=== PATIENT | female | born 2000 | race Caucasian/White ===

== ENCOUNTER 2023-07-25 16:26 | Emergency (ER) | payer OTHER, SELFPAY ==
[2023-07-25 16:29] VITALS: BP 107/67; PULSE 97; RESP 18; TEMP 36.2; O2SAT 99
[2023-07-25 16:49] LABS: Basophils Percent Auto 0.3 % (0.2-1.2); Eosinophils Percent Auto 0.4 % (0-4.4); Hematocrit 43.9 % (37.0-47.0); Hemoglobin 14.9 g/dL (12.0-15.0); Immature Granulocyte Absolute 0.03 K/mm3 (0.00-0.031); Immature Granulocyte Percent A 0.3 % (0-0.5); Lymphocytes Absolute Auto 1.88 K/mm3 (0.9-3.2); Lymphocytes Percent Auto 20.7 % (18.3-44.2); Mean Corpuscular HGB Conc 33.9 g/dl (32-36); Mean Corpuscular Hemoglobin 32.1 pg (26-34); Mean Corpuscular Volume 94.6 fl (80-100); Mean Platelet Volume 10.1 fl (7.4-10.4); Monocytes Absolute Auto 0.5 K/mm3 (0.1-0.6); Monocytes Percent Auto 5.5 % (2.6-8.5); Neutrophils Absolute Auto 6.6 K/mm3 (1.3-6.7); Neutrophils Percent Auto 72.8 % (45.5-73.1); Platelet Count Result 210 k/mm3 (150-375); Red Blood Count 4.64 M/mm3 (4.2-5.4); Red Cell Distribution Width 11.9 % (11.5-14.5); White Blood Count 9.1 K/mm3 (4.5-10.0)
--- NOTE | 2023-07-25 16:55 | ED.GENADULT ---
HPI - General Adult General Chief complaint: Nausea/Vomiting/Diarrhea Stated complaint: n/v, spotting History of Present Illness HPI narrative: Eri Jolley is a 23 y/o female approx 8-9 weeks , she states she had an ultrasound completed Yesterday to confirm IUP, she comes in today with concern for continued nausea/vomiting/ unable to keep anything down / and she started to have spotting with wiping today. Denies abdominal pain/ cramping Related Data Allergies Allergy/AdvReac Type Severity Reaction Status Date / Time No Known Allergies Allergy Verified 07/25/23 18:24 Course Vital Signs Vital signs: Vital Signs Temperature 36.2 C L 07/25/23 16:29 Pulse Rate 97 07/25/23 16:29 Respiratory Rate 18 07/25/23 16:29 Blood Pressure 107/67 07/25/23 16:29 Pulse Oximetry 99 07/25/23 16:29 Oxygen Delivery Room Air 07/25/23 16:29 Temperature 36.2 C L 07/25/23 16:29 Pulse Rate 91 07/25/23 18:27 Respiratory Rate 18 07/25/23 18:27 Blood Pressure 90/58 L 07/25/23 18:27 Pulse Oximetry 100 07/25/23 18:27 Oxygen Delivery Room Air 07/25/23 16:29 Medical Decision Making Vital Signs Vital Signs: Vital Signs Temperature 36.2 C L 07/25/23 16:29 Pulse Rate 97 07/25/23 16:29 Respiratory Rate 18 07/25/23 16:29 Blood Pressure 107/67 07/25/23 16:29 Pulse Oximetry 99 07/25/23 16:29 Oxygen Delivery Room Air 07/25/23 16:29 Temperature 36.2 C L 07/25/23 16:29 Pulse Rate 91 07/25/23 18:27 Respiratory Rate 18 07/25/23 18:27 Blood Pressure 90/58 L 07/25/23 18:27 Pulse Oximetry 100 07/25/23 18:27 Oxygen Delivery Room Air 07/25/23 16:29 Lab Data 07/25/23 16:39 07/25/23 16:39 Labs: Lab Results 07/25/23 07/25/23 Range/Units 16:39 17:16 WBC 9.1 (4.5-10.0) K/mm3 RBC 4.64 (4.2-5.4) M/mm3 Hgb 14.9 (12.0-15.0) g/dL Hct 43.9 (37.0-47.0) % MCV 94.6 (80-100) fl MCH 32.1 (26-34) pg MCHC 33.9 (32-36) g/dl RDW 11.9 (11.5-14.5) % Plt Count 210 (150-375) k/mm3 MPV 10.1 (7.4-10.4) fl Immature Gran % (Auto) 0.3 (0-0.5) % Neut % (Auto) 72.8 (45.5-73.1) % Lymph % (Auto) 20.7 (18.3-44.2) % [place] % (Auto) 5.5 (2.6-8.5) % Eos % (Auto) 0.4 (0-4.4) % Baso % (Auto) 0.3 (0.2-1.2) % Lymph # (Auto) 1.88 (0.9-3.2) K/mm3 [place] # (Auto) 0.5 (0.1-0.6) K/mm3 Eos # (Auto) 0.0 (0-0.3) K/mm3 Baso # (Auto) 0.0 (0.0-0.1) K/mm3 Abs Immat Gran (auto) 0.03 (0.00-0.031) K/mm3 Absolute Neuts (auto) 6.6 (1.3-6.7) K/mm3 Absolute Nucleated RBC 0.0 (0.0-0.012) K/mm3 Nucleated RBC % 0.0 (0.0-0.2) % Sodium 138 (137-145) mmol/L Potassium 3.9 (3.4-5.0) mmol/L Chloride 104 (98-107) mmol/L Carbon Dioxide 22 (22-30) mmol/L Anion Gap 12 (8-16) mmol/L BUN 11 (7-17) mg/dL Creatinine 0.50 L (0.7-1.0) mg/dL Estim Creat Clear Calc 115 ml/min Estimated GFR > 60 (59 - ) Glucose 81 (65-110) mg/dL Calcium 9.9 (8.4-10.2) mg/dL Total Bilirubin 1.2 (0.2-1.3) mg/dL AST 24 (14-36) U/L ALT 15 (6-35) U/L Alkaline Phosphatase 48 (38-126) U/L Total Protein 9.0 H (6.3-8.2) g/dL Albumin 5.0 (3.5-5.1) g/dL Lipase 108 (23-300) U/L Beta HCG, Quant 752905.00 mIU/ML Urine Color Dark yellow (Yellow) Urine Appearance Turbid H (Clear) Urine pH 5.5 (5.0-9.0) Ur Specific [place] 1.026 (1.001-1.035) Urine Protein Trace (Negative) mg/dL Urine Glucose (UA) Negative (Negative) mg/dL Urine Ketones 1+ H (Negative) mg/dL Ur Blood (Man) Negative (Negative) Urine Nitrate Negative (Negative) Urine Bilirubin Negative (Negative) Urine Urobilinogen 1.0 (<2.0) mg/dL Add Ur Microanalysis Reviewed Leukocyte Esterase Rfl 2+ H (Negative) SARA/UL Urine RBC 11-20 H (0-2) /hpf Urine WBC 11-20 H /hpf Ur Squamous Epith Cells Many H (Few) /hpf Urine Bacteria 4+ H /hpf
[2023-07-25 16:57] LABS: Alanine Aminotransferase 15 U/L (6-35); Alkaline Phosphatase 48 U/L (38-126); Anion Gap 12 mmol/L (8-16); Aspartate Amino Transferase 24 U/L (14-36); Bilirubin,Total 1.2 mg/dL (0.2-1.3); Blood Urea Nitrogen 11 mg/dL (7-17); Calcium 9.9 mg/dL (8.4-10.2); Carbon Dioxide 22 mmol/L (22-30); Chloride 104 mmol/L (98-107); Estimated CRCL calculation 115 ml/min; Estimated Glomerular Filt Rate > 60; Glucose 81 mg/dL (65-110); Lipase 108 U/L (23-300); Potassium 3.9 mmol/L (3.4-5.0); Sodium 138 mmol/L (137-145)
[2023-07-25 17:36] LABS: Appearance Urine Turbid (Clear); Bacteria Urine 4+ /hpf; Bilirubin Urine Negative (Negative); Blood Urine Negative (Negative); Color Urine Dark Yellow (Yellow); Glucose Urine UA Negative (Negative); Ketones Urine 1+ mg/dL (Negative); Leukocyte Esterase Ur 2+ LEU/UL (Negative); Mucus Urine Present /lpf; Need Manual Microscopic Reviewed; Nitrate Urine Negative (Negative); Protein Urine Trace mg/dL (Negative); Specific Grav Ur 1.026 (1.001-1.035); Squamous Epithelial Cell Urine Many /hpf (Few); pH Urine 5.5 (5.0-9.0)
[2023-07-25 17:37] LABS: Add Urine Microscopic? YES
[2023-07-25] MEDS: METOCLOPRAMIDE HCL INJ 10 MG/2 ML VIAL IV PUSH (18:25)
[2023-07-25 18:27] VITALS: BP 90/58; PULSE 91; RESP 18; O2SAT 100
== END 2023-07-25 21:53 | disposition left against medical advice (07) ==
PROVIDERS: Emergency Provider Nurse Practitioner Family; PCP Nurse Practitioner
DX: O26.891 Other specified pregnancy related conditions, first trimester (principal); R11.2 Nausea with vomiting, unspecified; Z3A.08 8 weeks gestation of pregnancy
CPT/HCPCS: 36415; 80053; 81001; 83690; 84702; 85025; 87086; 87088; 96374; 99284; J2765

== ENCOUNTER 2023-11-23 03:50 | Inpatient (IN) | payer OTHER, SELFPAY ==
[2023-11-23] VITALS (12 sets, daily range): BP systolic 63–110; BP diastolic 22–73; PULSE 70–86; RESP 18; TEMP 36.4–37; BMI 22.9
[2023-11-23 04:21] LABS: Appearance Urine Cloudy (Clear); Bacteria Urine 4+ /hpf; Bilirubin Urine Negative (Negative); Blood Urine 3+ (Negative); Color Urine Yellow (Yellow); Glucose Urine UA Negative (Negative); Ketones Urine Negative (Negative); Leukocyte Esterase Ur 2+ LEU/UL (Negative); Nitrate Urine Negative (Negative); Non Pathogenic Casts 0-2; Protein Urine Negative (Negative); RBC Urine 51-100 /hpf (0-2); Specific Grav Ur 1.014 (1.001-1.035); Squamous Epithelial Cell Urine Few /hpf (Few); Urobilinogen Urine 0.2 mg/dL (<2.0)
[2023-11-23 04:26] LABS: WBC Urine 51-75 /hpf (0-3)
[2023-11-23 04:30] LABS: Add Urine Microscopic? YES
--- NOTE | 2023-11-23 04:46 | OBADM ---
This patient, Eri Jolley, admitted to the OB room OB Post 116 for observation. Patient/family oriented to hospital policies and general routines including ID bracelet, bed and alarms, visiting hours, pain management, procedures, bathroom and other care routines, personal items, smoking policy, room service/diet, and visiting hours. Patient/Family are encouraged to report perceived risks to care and to ask questions if they do not understand what they are told or what they should do.
[2023-11-23] MEDS: ACETAMINOPHEN 500 MG TABLET 1000 MG PO ×3 (04:57→19:17)
[2023-11-23] MEDS: LACTATED RINGERS 1,000 ML 125 ML IV CONT ×3 (05:20→20:58)
[2023-11-23 05:21] LABS: Basophils Percent Auto 0.2 % (0.2-1.2); Eosinophils Absolute Auto 0.2 K/mm3 (0-0.3); Hematocrit 38.8 % (37.0-47.0); Hemoglobin 13.2 g/dL (12.0-15.0); Immature Granulocyte Absolute 0.12 K/mm3 (0.00-0.031); Immature Granulocyte Percent A 0.7 % (0-0.5); Lymphocytes Absolute Auto 1.33 K/mm3 (0.9-3.2); Lymphocytes Percent Auto 7.5 % (18.3-44.2); Mean Corpuscular Hemoglobin 32.9 pg (26-34); Mean Corpuscular Volume 96.8 fl (80-100); Mean Platelet Volume 10.7 fl (7.4-10.4); Monocytes Absolute Auto 1.3 K/mm3 (0.1-0.6); Monocytes Percent Auto 7.3 % (2.6-8.5); Neutrophils Absolute Auto 14.8 K/mm3 (1.3-6.7); Neutrophils Percent Auto 83.3 % (45.5-73.1); Platelet Count Result 192 k/mm3 (150-375); Red Blood Count 4.01 M/mm3 (4.2-5.4); Red Cell Distribution Width 12.6 % (11.5-14.5); White Blood Count 17.7 K/mm3 (4.5-10.0)
[2023-11-23] MEDS: cefTRIAXone 2 GM/NS 100 ML 2 GM/100 ML BAG IVPB (05:33)
--- NOTE | 2023-11-23 08:06 | PM.IMHP ---
H&P: HPI History of Present Illness Date/Time: 11/23/23 08:06 Chief Complaint: flank pain Narrative: 23-year-old who presents at 25 weeks with complaint of abdominal pain, cramping, left-sided flank pain. Patient had called the on-call line complaining of the symptoms. Patient also reports dysuria and UTI symptoms. She denies any fevers, chills, nausea, vomiting. Patient noted to have CVA tenderness on her left side. Review of Systems Cardiovascular: Cardiovascular: Denies chest pain, Denies leg edema, Denies palpitations, Denies dyspnea and Denies dyspnea on exertion Respiratory: Respiratory: Denies cough, Denies dyspnea and Denies dyspnea on exertion Gastrointestinal: Gastrointestinal: Denies abdominal pain, Denies constipation, Denies diarrhea, Denies nausea and Denies vomiting Genitourinary: Genitourinary: Denies hematuria, Denies dysuria, Denies pelvic pain, Reports flank pain, Denies urinary incontinence and Denies vaginal discharge Neurologic: Reports system reviewed and no additional complaints, except as documented Psychiatric: Psychiatric: Reports no additional psychiatric complaints Endocrine: Endocrine: Denies palpitations [facility] Past Medical History Medical History (Updated 11/23/23 @ 09:24 by Emile Patricia MD) Amenorrhea delivery delivered Family History Family History (Updated 11/14/23 @ 08:28 by Nora Vieira MA) Other Breast cancer Lung cancer Skin cancer Social History Social History (Updated 11/14/23 @ 08:28 by Nora Vieira MA) Smoking status: Never smoker Alcohol intake: former Substance use: never Substance use type: does not use Do You Feel Safe in your Home?: Yes Lack of Transportation: No Lack of Food: Never True Current Housing: I Have Housing Concerned About Future Housing: No Difficulty Paying Gas/Electric Bills: No Difficulty Paying for Meds: No Currently Unemployed: No Education: High School Diploma/GED Difficulty w/ Childcare or Family Care: No Living arrangements: with family Occupation/Education: occupation 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[employer] Gender identity (if verbalized by the patient): Female Sexual Orientation (if Verbalized by the Patient): Straight or Heterosexual Meds Home Medications and Allergies Home Medications Medication Instructions Recorded Confirmed Type docosahexaenoic acid 200 mg mg PO 11/14/23 11/14/23 History capsule ( DHA) Allergies Allergy/AdvReac Type Severity Reaction Status Date / Time No Known Allergies Allergy Verified 11/14/23 08:26 Vital Signs Vital Signs - 24 hr 11/23/23 04:07 11/23/23 04:16 11/23/23 04:31 Temperature 97.7 F Pulse Rate 82 84 83 Respiratory Rate 18 Blood Pressure 110/73 106/71 101/56 L Oxygen Delivery 11/23/23 05:31 11/23/23 06:01 11/23/23 06:12 Temperature 98.6 F Pulse Rate 74 86 Respiratory Rate Blood Pressure 101/60 102/60 Oxygen Delivery 11/23/23 06:31 11/23/23 07:01 11/23/23 07:12 Temperature Pulse Rate 74 75 76 Respiratory Rate Blood Pressure 94/57 L 63/41 L 72/22 L Oxygen Delivery 11/23/23 07:12 11/23/23 07:12 11/23/23 04:45 Temperature Pulse Rate 70 Respiratory Rate Blood Pressure 97/57 L Oxygen Delivery Room Air Exam Const: General: no acute distress Eyes: EOM: EOMs intact bilaterally Neck: Neck: supple Thyroid: thyroid normal Chest: Breast/axilla inspection: normal inspection of the breasts Breast/axilla palpation: normal palpation of the breasts, normal palpation of the axillae and no axillary lymphadenopathy Resp: Effort & Inspection: normal respiratory effort Auscultation: clear to auscultation bilaterally Cardio: Rate: regular rate Rhythm: regular rhythm GI: Inspection: non-distended and other (Gravid) GI Palp: Yes Soft to palpation, No Tenderness to palpation present (GI) and No
[2023-11-24] MEDS: LACTATED RINGERS 1,000 ML 125 ML IV CONT (05:09)
[2023-11-24] MEDS: cefTRIAXone 2 GM/NS 100 ML 2 GM/100 ML BAG IVPB (05:09)
[2023-11-24] MEDS: ACETAMINOPHEN 500 MG TABLET 1000 MG PO (05:46)
--- NOTE | 2023-11-24 07:40 | PC.NURSE ---
Dr. Patricia in to see and assess pt. CBC was ordered for this am. MD plans to discharge pt to home if WBC count has come down.
[2023-11-24 07:55] VITALS: BP 96/51; RESP 16; TEMP 36.3
[2023-11-24 07:57] VITALS: BP 96/51; PULSE 74
--- NOTE | 2023-11-24 07:59 | PM.DS ---
DS: Admitting Diagnosis Discharge Date 11/24/23 Admitting Diagnosis intrauterine at 25 weeks Acute pyelonephritis DS: Discharge Diagnosis Discharge Diagnosis (1) Pyelonephritis affecting in second trimester: Code(s): O23.02 - Infections of kidney in , second trimester Status: Acute DS: Summary Hospital Course Hospital Course: 23-year-old at 25 weeks who presents with left-sided flank plain found to have acute pyelonephritis. Patient received 2 doses of IV Rocephin. Patient's CVA tenderness has improved greatly. Plan for discharge home on p.o. antibiotics. Status at Discharge Functional status at discharge: independent ambulation Overall status at discharge: patient is progressing back to baseline Time Spent with Patient Time attestation: Total time spent providing and/or coordinating discharge services: Time spent: Less than 30 minutes Exam Const: General: cooperative, comfortable and no acute distress Resp: Effort & Inspection: normal respiratory effort and able to speak in complete sentences Cardio: Rate: regular rate GI: GI Palp: Yes Soft to palpation and No Tenderness to palpation present (GI) : General: Yes no CVA tenderness Discharge Plan Discharge Discharging Clinician: Emile Patricia Patient Disposition: Home, Self-Care Activity: as tolerated Diet: regular Patient Instructions: Antibiotic Form, Urinary Tract Infection in (DC) Stand Alone Forms: General Discharge Information Follow-up/Referrals: Emile Patricia MD [Physician] - Discharge Medications: New cephalexin 500 mg capsule 500 mg PO Q12H 14 Days Qty: 28 0RF Continued DHA 200 mg capsule PO Date of admission: 11/23/23 11:33 Primary Care Provider: UNKNOWN,DOCTOR Admitting Provider: Kim Zayas Attending physician on admission: Kim Zayas Condition: Stable
[2023-11-24 08:03] LABS: Basophils Percent Auto 0.3 % (0.2-1.2); Eosinophils Absolute Auto 0.2 K/mm3 (0-0.3); Eosinophils Percent Auto 2.2 % (0-4.4); Hematocrit 35.3 % (37.0-47.0); Hemoglobin 11.8 g/dL (12.0-15.0); Lymphocytes Absolute Auto 1.97 K/mm3 (0.9-3.2); Lymphocytes Percent Auto 19.6 % (18.3-44.2); Mean Corpuscular HGB Conc 33.4 g/dl (32-36); Mean Corpuscular Hemoglobin 33.2 pg (26-34); Mean Corpuscular Volume 99.4 fl (80-100); Mean Platelet Volume 10.2 fl (7.4-10.4); Monocytes Absolute Auto 0.6 K/mm3 (0.1-0.6); Monocytes Percent Auto 6.2 % (2.6-8.5); Neutrophils Absolute Auto 7.1 K/mm3 (1.3-6.7); Neutrophils Percent Auto 70.7 % (45.5-73.1); Platelet Count Result 175 k/mm3 (150-375); Red Blood Count 3.55 M/mm3 (4.2-5.4); Red Cell Distribution Width 12.7 % (11.5-14.5)
[2023-11-24 08:59] VITALS: BP 96/51; PULSE 71
== END 2023-11-24 11:39 | disposition home or self-care (01) | DRG 832 ==
PROVIDERS: Admitting Provider Student in an Organized Health Care Education/Training Program; Visit Provider Student in an Organized Health Care Education/Training Program
DX: O23.02 Infections of kidney in pregnancy, second trimester (principal); N10 Acute pyelonephritis; Z3A.25 25 weeks gestation of pregnancy
CPT/HCPCS: 36415; 59025; 85025; 87086; 96361; 96374; A9270; G0378; G0379; J0696; J7120

== ENCOUNTER 2023-11-24 15:15 | Outpatient (CLI) | payer OTHER, SELFPAY ==
--- NOTE | ~2023-11-24 | US_ITS ---
EXAMINATION: US OB /maternal detail DATE: 11/24/2023 15:55 INDICATION: survey TECHNIQUE: Multiple obstetric sonographic images performed. FINDINGS: No prior studies for comparison. There is a single living fetus in breech presentation. The placenta is anterior without placenta pre via. Cervical length is 3.1 cm. Amniotic fluid volume is subjectively normal. cardiac activity and movement is noted with a heart rate of 156 beats per minute. The following anatomy was identified as normal: 4 chamber heart 3 vessel cord cord insertion kidneys urinary bladder stomach spine diaphragm ventricles cisterna magna cerebellum The following biometric data were obtained: BPD: 62mm corresponds to gestational age 25 weeks 0 days. Head circumference: 240 mm corresponds to gestational age 26 weeks 1 days. Abdominal circumference: 223 mm corresponds to gestational age 26 weeks 5 days. Femur length: 46 mm corresponds to gestational age 25 weeks 2 days. Head circumference to abdominal circumference ratio: 1.08 (normal range for expected gestational age is 1.04-1.22). Estimated weight: 886 grams +/- 132 grams using Hadlock method, 67%. IMPRESSION: 1: Single living intrauterine with an estimated gestational age of 25weeks 6days by current ultrasound measurements, with an EDC of 03/02/2024 in breech presentation. 2. Normal survey. Reviewed, dictated and finalized at location A. IMPRESSION: 1: Single living intrauterine with an estimated gestational age of 25 weeks 6days by current ultrasound measurements, with an EDC of 03/02/2024 in chayo ech presentation. 2. Normal survey.
== END 2023-11-24 15:16 ==
LOC: MICIMG 15:16
PROVIDERS: PCP Student in an Organized Health Care Education/Training Program; Visit Provider Student in an Organized Health Care Education/Training Program
DX: Z34.90 Encounter for supervision of normal pregnancy, unspecified, unspecified trimester (principal); Z3A.25 25 weeks gestation of pregnancy
CPT/HCPCS: 76805

== ENCOUNTER 2023-12-22 09:48 | Outpatient (CLI) | payer OTHER, SELFPAY ==
[2023-12-22 11:16] LABS: Basophils Percent Auto 0.4 % (0.2-1.2); Eosinophils Absolute Auto 0.1 K/mm3 (0-0.3); Eosinophils Percent Auto 1.2 % (0-4.4); Hematocrit 37.7 % (37.0-47.0); Hemoglobin 12.5 g/dL (12.0-15.0); Immature Granulocyte Absolute 0.14 K/mm3 (0.00-0.031); Immature Granulocyte Percent A 1.4 % (0-0.5); Lymphocytes Percent Auto 16.1 % (18.3-44.2); Mean Corpuscular HGB Conc 33.2 g/dl (32-36); Mean Corpuscular Hemoglobin 32.9 pg (26-34); Mean Corpuscular Volume 99.2 fl (80-100); Mean Platelet Volume 9.9 fl (7.4-10.4); Monocytes Absolute Auto 0.6 K/mm3 (0.1-0.6); Monocytes Percent Auto 6.1 % (2.6-8.5); Neutrophils Absolute Auto 7.5 K/mm3 (1.3-6.7); Neutrophils Percent Auto 74.8 % (45.5-73.1); Platelet Count Result 189 k/mm3 (150-375); Red Cell Distribution Width 12.6 % (11.5-14.5)
[2023-12-22 11:26] LABS: Glucose 1 Hour PP 50gm Dose 69 mg/dL
[2023-12-22 12:06] LABS: HIV 1/2 Ab P24 Ag Result Negative (Negative)
[2023-12-22 12:27] LABS: Hepatitis B Surface Antigen Negative (Negative); Rubella IgG Antibody 32.1 IU/ML
[2023-12-25 09:43] LABS: Varicella IgG Antibody <135.00 index
[2023-12-26 12:36] LABS: Rapid Plasma Reagin Non-Reactive (NonReactive)
== END 2023-12-22 09:49 | disposition home or self-care (01) ==
LOC: ANHLAB 09:49
PROVIDERS: Obstetrics & Gynecology; PCP Student in an Organized Health Care Education/Training Program; Visit Provider Student in an Organized Health Care Education/Training Program
DX: Z34.90 Encounter for supervision of normal pregnancy, unspecified, unspecified trimester (principal); N91.2 Amenorrhea, unspecified
CPT/HCPCS: 36415; 82947; 84702; 85025; 86592; 86644; 86703; 86747; 86762; 86787; 86850; 86900; 86901; 87086; 87340; G0432

== ENCOUNTER 2023-12-22 14:02 | Outpatient (CLI) | payer OTHER, SELFPAY ==
--- NOTE | ~2023-12-22 | US_ITS ---
US OB follow up DATE: 12/22/2023 14:39 INDICATION: Size greater than dates TECHNIQUE: Real-time imaging and Doppler analysis COMPARISON: 11/24/2023 obstetrical ultrasound examination FINDINGS: Live vilchis intrauterine gestation, fetus in vertex presentation, heart rate of 16 3 bpm. movement is visualized. The placenta is anterior. The lower placental margin is well above the internal os. Amniotic fluid index measures 12.2 cm, within lower normal range. (5th percentile LEAH: 9.2 cm; 95th p ercentile LEAH: 23.1 cm) Biparietal diameter 7.89 cm; 31 weeks 5 days Head circumference 28.61 cm; 31 weeks 3 days Abdominal circumference 25.56 cm; 29 weeks 5 days Femur length 5.49 cm; 29 weeks 0 days Composite age by Hadlock formula based upon the current measurements would be 30 weeks 3 days +/- 2 w eeks 1 day with LUPE of 02/27/2024, compared to 03/05/2024 by LMP and 03/02/2024 estimate on the obstetrical ultrasound examination. Estimated weight is 1455 +/- 218 g. Head circumference/abdominal audiovisual production specialist was 1.12, within normal range of 0.97-1.18 Femur length/abdominal circumference 21.48, within normal range of 20.00-24.00 Femur length/BPD 69.60, below normal range of 71.0-87.0 Femur length/head circumference 19.18, slightly below normal range of 19.24-21.36. IMPRESSION: Fetus is now in vertex presentation as opposed to breech presentation on 11/24/2023. Amniotic fluid index measures 12.2 cm, within lower normal limits Composite age by Hadlock formula based upon the current measurements would be 30 weeks 3 days +/- 2 w eeks 1 day with LUPE of 02/27/2024, compared to 03/05/2024 by LMP and 03/02/2024 estimate on the obstetrical ultrasound examination. Estimated weight is 1455 +/- 218 g. Reviewed, dictated and finalized at Location [facility]. Reviewed, dictated and finalized at location A. IMPRESSION: Fetus is now in vertex presentation as opposed to breech presentati on on 11/24/2023. Amniotic fluid index measures 12.2 cm, within lower normal limits Composite age by Hadlock formula based upon the current measurements would be 3 0 weeks 3 days +/- 2 weeks 1 day with LUPE of 02/27/2024, compared to 03/05/2024 b y LMP and 03/02/2024 estimate on the 11/24/2023 obstetrical ultrasound examinatio n. Estimated weight is 1455 +/- 218 g.
== END 2023-12-22 14:03 ==
LOC: MICIMG 14:03
PROVIDERS: PCP Obstetrics & Gynecology; Visit Provider Obstetrics & Gynecology
DX: Z34.90 Encounter for supervision of normal pregnancy, unspecified, unspecified trimester (principal)
CPT/HCPCS: 76816

== ENCOUNTER 2024-01-08 21:10 | Observation (INO) | payer OTHER, SELFPAY ==
[2024-01-08 21:30] VITALS: BP 99/63; PULSE 86
[2024-01-08 21:45] VITALS: BP 99/83; PULSE 82
[2024-01-08 22:00] VITALS: BP 99/60; PULSE 79
--- NOTE | 2024-01-10 08:06 | PM.OBTRLD ---
OB - Triage/Final Diagnosis Visit Information Comments/Additional reasons for admission: I have assessed the risk for this patient, Eri Jolley, and determined that she would benefit from observation care. Final Diagnosis (1) Fall: Code(s): W19.XXXA - Unspecified fall, initial encounter Status: Acute
== END 2024-01-09 01:43 | disposition home or self-care (01) ==
PROVIDERS: Admitting Provider Obstetrics & Gynecology; PCP Obstetrics & Gynecology; Visit Provider Obstetrics & Gynecology
DX: Z04.3 Encounter for examination and observation following other accident (principal); W10.9XXA Fall (on) (from) unspecified stairs and steps, initial encounter; Z3A.32 32 weeks gestation of pregnancy
CPT/HCPCS: G0378; G0379

== ENCOUNTER 2024-01-26 14:44 | Outpatient (CLI) | payer OTHER, SELFPAY ==
--- NOTE | ~2024-01-26 | US_ITS ---
EXAMINATION: US OB follow up DATE: 01/26/2024 15:09 INDICATION: History of labor. Third trimester. TECHNIQUE: Real-time ultrasound of the pelvis was performed. COMPARISON: Ultrasound 12/22/2023 FINDINGS: There is a single living fetus in vertex presentation. The placenta is anterior. heart rate is 162 beats per minute (bpm). The amniotic fluid index is 13.7 cm, which is normal. The following biometric data were obtained: Biparietal diameter (BPD): 8.5 cm; head circumference (HC): 30.6 cm; abdominal circumference (AC): 30 .2 cm; femur length (FL): 6.5 cm. These measurements are concordant. Estimated weight is 2330 g +/- 350 g, which correlates with the 33rd percentile when 03/05/24 is used as estimated date of delivery. As single measurements, these parameters are each equal to the following estimated gestational ages: BPD: 34 weeks 3 days. HC: 34 weeks 0 days. AC: 34 weeks 1 days. FL: 33 weeks 4 days. estimated gestational age based solely on measurements from this exam is 34 weeks 0 days +/- 2 weeks 3 days. IMPRESSION: 1. Single living fetus in vertex presentation. 2. Estimated weight is 2330 g +/- 350 g, which correlates with the 33rd percentile when 4 is used as estimated date of delivery. Reviewed, dictated and finalized at location E. IMPRESSION: 1. Single living fetus in vertex presentation. 2. Estimated weight is 2330 g +/- 350 g, which correlates with the 33rd percentile when 03/05/24 is used as estimated date of delivery.
== END 2024-01-26 14:45 ==
PROVIDERS: PCP Obstetrics & Gynecology; Visit Provider Obstetrics & Gynecology
DX: Z34.90 Encounter for supervision of normal pregnancy, unspecified, unspecified trimester (principal); Z87.51 Personal history of pre-term labor
CPT/HCPCS: 76816

== ENCOUNTER 2024-01-31 15:13 | Outpatient (CLI) | payer OTHER, SELFPAY ==
--- NOTE | ~2024-01-31 | US_ITS ---
EXAMINATION: US OB limited DATE: 01/31/2024 15:37 INDICATION: Weekly amniotic fluid index check during third trimester TECHNIQUE: Real-time ultrasound of the pelvis was performed. The interpreting radiologist was not pre sent for the study. COMPARISON: None. FINDINGS: There is a single living fetus. The placenta is anterior. heart rate is 154 beats per minute ( bpm). The amniotic fluid index is 9.6 cm cm, which is normal (5th%-95%: 7.9-3 4.9 cm at 35 weeks taylor mated gestational age). IMPRESSION: 1. Single living fetus with heart rate of 154 bpm. 2. Normal amniotic fluid index of 9.6 cm. Reviewed, dictated and finalized at location A.
== END 2024-01-31 15:14 ==
LOC: GOSHIMG 15:13
PROVIDERS: PCP Obstetrics & Gynecology; Visit Provider Obstetrics & Gynecology
DX: Z36.89 Encounter for other specified antenatal screening (principal)
CPT/HCPCS: 76815

== ENCOUNTER 2024-02-07 13:47 | Outpatient (CLI) | payer OTHER, SELFPAY ==
--- NOTE | ~2024-02-07 | US_ITS ---
US OB limited 02/07/2024 14:01 Indication: Personal history of labor. History of low amniotic fluid index. Procedure: High-resolution Limited obstetrical ultrasound Comparison: Ultrasound dated 01/31/2024 Findings: There is a single living intrauterine in vertex presentation. heart rate is 157 BPM. Placenta is anterior.. Amniotic fluid index is below normal limits measuring 4.37 cm (sabino l range for gestational age is 7.7-24.9 cm). Impression: 1: Oligohydramnios. LEAH measures 4.37 cm. Reviewed, dictated and finalized at location B. Impression: 1: Oligohydramnios. LEAH measures 4.37 cm.
== END 2024-02-07 13:48 ==
PROVIDERS: PCP Obstetrics & Gynecology; Visit Provider Obstetrics & Gynecology
DX: O41.00X0 Oligohydramnios, unspecified trimester, not applicable or unspecified (principal); Z87.51 Personal history of pre-term labor; Z3A.00 Weeks of gestation of pregnancy not specified
CPT/HCPCS: 76815

== ENCOUNTER 2024-02-11 07:06 | Outpatient (RCR) | payer OTHER, SELFPAY ==
[2024-02-08 12:02] VITALS: BP 109/68; PULSE 82
--- NOTE | ~2024-02-11 | US_ITS ---
EXAMINATION: US OB limited w BPP DATE: 02/08/2024 10:34 INDICATION: Oligohydramnios. TECHNIQUE: Real-time pelvic ultrasound was performed. COMPARISON: Ultrasound 02/07/2024 FINDINGS: There is a single living fetus in vertex presentation. The placenta is anterior. heart rate is 162 beats per minute (bpm). The amniotic fluid index is 7.2 cm which is low (5th percentile is 7.7 c m). Biophysical profile performed by the technologist: breathing (30 sec sustained breathing in 30 minutes): 2 out of 2 movement (3 gross body movements in 30 minutes): 2 out of 2 tone (one episode of [id number]-[id number] limb movement): 2 out of 2 Amniotic fluid pocket (2 cm): 2 out of 2 Total score: 8 out of 8 IMPRESSION: 1. Single living fetus in vertex presentation. 2. Biophysical profile 8 out of 8. 3. Oligohydramnios. Reviewed, dictated and finalized at location A.
[2024-02-11 07:52] LABS: Basophils Percent Auto 0.3 % (0.2-1.2); Eosinophils Absolute Auto 0.2 K/mm3 (0-0.3); Eosinophils Percent Auto 1.7 % (0-4.4); Hematocrit 35.4 % (37.0-47.0); Hemoglobin 11.6 g/dL (12.0-15.0); Immature Granulocyte Absolute 0.14 K/mm3 (0.00-0.031); Immature Granulocyte Percent A 1.4 % (0-0.5); Lymphocytes Absolute Auto 1.62 K/mm3 (0.9-3.2); Lymphocytes Percent Auto 16.4 % (18.3-44.2); Mean Corpuscular HGB Conc 32.8 g/dl (32-36); Mean Corpuscular Hemoglobin 31.8 pg (26-34); Mean Platelet Volume 10.1 fl (7.4-10.4); Monocytes Absolute Auto 0.6 K/mm3 (0.1-0.6); Monocytes Percent Auto 5.6 % (2.6-8.5); Neutrophils Absolute Auto 7.4 K/mm3 (1.3-6.7); Neutrophils Percent Auto 74.6 % (45.5-73.1); Platelet Count Result 178 k/mm3 (150-375); Red Blood Count 3.65 M/mm3 (4.2-5.4); Red Cell Distribution Width 12.6 % (11.5-14.5); White Blood Count 9.9 K/mm3 (4.5-10.0)
[2024-02-11 07:58] VITALS: BP 98/61; PULSE 80
[2024-02-11 08:42] LABS: HIV 1/2 Ab P24 Ag Result Negative (Negative)
[2024-02-12 11:51] LABS: Rapid Plasma Reagin Non-Reactive (NonReactive)
== END 2024-05-08 23:59 | disposition home or self-care (01) ==
LOC: ANHOBOP 07:06
PROVIDERS: PCP Nurse Practitioner; Visit Provider Obstetrics & Gynecology
DX: O41.03X0 Oligohydramnios, third trimester, not applicable or unspecified (principal); Z11.4 Encounter for screening for human immunodeficiency virus [HIV]; Z11.3 Encounter for screening for infections with a predominantly sexual mode of transmission; Z3A.36 36 weeks gestation of pregnancy
CPT/HCPCS: 36415; 59025; 76815; 76819; 85025; 86592; 86703; 86850; 86900; 86901; G0432; J2274

== ENCOUNTER 2024-02-12 09:39 | Inpatient (IN) | payer OTHER, SELFPAY ==
[2024-02-12] VITALS (56 sets, daily range): BP systolic 90–122; BP diastolic 46–75; PULSE 54–164; RESP 13–18; TEMP 36.2–36.9; O2SAT 97–100; BMI 27.0
--- NOTE | 2024-02-12 08:59 | PM.IMHP ---
H&P: HPI History of Present Illness Date/Time: 02/12/24 08:59 24-year-old female presents for repeat delivery. She is 37 weeks gestation with oligohydramnios. Her prior section she did deliver due to oligohydramnios and distress. records are on the chart. Chief Complaint: Review of Systems Review of Systems: All systems reviewed & are unremarkable except as noted in HPI and below PMFSH Past Medical History Medical History (Updated 02/12/24 @ 09:03 by James Bolanos MD) Amenorrhea delivery delivered Surgical History Surgical History (Updated 02/12/24 @ 09:03 by James Bolanos MD) History of section complicating Family History Family History Other Breast cancer Lung cancer Skin cancer Social History Social History Smoking status: Never smoker Alcohol intake: former Substance use: never Substance use type: does not use Do You Feel Safe in your Home?: Yes Lack of Transportation: No Lack of Food: Never True Current Housing: I Have Housing Concerned About Future Housing: No Difficulty Paying Gas/Electric Bills: No Difficulty Paying for Meds: No Currently Unemployed: No Education: High School Diploma/GED Difficulty w/ Childcare or Family Care: No Living arrangements: with family 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/Education: occupation 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[employer] Gender identity (if verbalized by the patient): Female Sexual Orientation (if Verbalized by the Patient): Straight or Heterosexual Meds Home Medications and Allergies Home Medications Medication Instructions Recorded Confirmed Type docosahexaenoic acid 200 mg 200 mg PO DAILY 11/14/23 02/06/24 History capsule ( DHA) Allergies Allergy/AdvReac Type Severity Reaction Status Date / Time No Known Allergies Allergy Verified 02/06/24 17:35 Exam Const: General: cooperative and healthy appearing Resp: Effort & Inspection: normal respiratory effort Auscultation: clear to auscultation bilaterally Cardio: Rate: regular rate Rhythm: regular rhythm GI: Inspection: normal to inspection and incision Auscultation: normal bowel sounds : Bimanual exam- vagina & uterus: enlarged ( fundal height 36cm, heart tone 140) Assessment and Plan Assessment and plan (1) 37 weeks gestation of : Code(s): Z3A.37 - 37 weeks gestation of Status: Acute (2) Oligohydramnios: Code(s): O41.00X0 - Oligohydramnios, unspecified trimester, not applicable or unspecified Status: Acute (3) History of section complicating : Code(s): O34.219 - Maternal care for unspecified type scar from previous delivery Status: Acute Plan proceed with repeat low-transverse delivery
--- NOTE | 2024-02-12 09:03 | WPDHPUPDATE1 ---
History and Physical Update Update Date/Time: 02/12/24 09:03 History and Physical has been reviewed, including an updated exam of the patient. There are NO changes in the patient's condition. Risks, benefits, and alternatives have been discussed and questions answered. Patient agrees to proceed with procedure.
[2024-02-12] MEDS: ACETAMINOPHEN 500 MG TABLET 1000 MG PO (10:07)
[2024-02-12] MEDS: LACTATED RINGERS 1,000 ML 125 ML IV CONT ×2 (10:10→11:22)
--- NOTE | 2024-02-12 10:26 | LDADM ---
This patient, Eri Jolley, was admitted to Labor/Delivery/Recovery 120 on 02/12/24 at 09:39. Plans for section, pain management and were discussed with patient. Patient/family oriented to hospital policies and general routines including ID bracelet, bed and alarms, visiting hours, pain management, procedures, bathroom and other care routines, personal items, smoking policy, room service/diet and guest tray routines, security routines, and visiting hours. Patient/Family are encouraged to report perceived risks to care and to ask questions if they do not understand what they are told or what they should do. See OBIX for further documentation.
--- NOTE | 2024-02-12 11:55 | WPDANESEPPF ---
Anes - Initial Pre Proc Eval Procedure: Operation Date: 02/12/24 12:00 Proposed Procedures p Repeat Section - James Bolanos MD Date/Time: 02/12/24 11:55 Surgeon: James Bolanos MD Pre Op Diagnosis: Repeat Section Patient Data Age: 24 Gender: F Height: 1.57 m Weight: 67 kg Last Vital Signs Temp 36.6 C 02/12/24 11:05 Pulse 78 02/12/24 10:39 BP 109/65 02/12/24 10:39 O2 Del Method Room Air 02/12/24 10:18 Allergies Allergy/AdvReac Type Severity Reaction Status Date / Time No Known Allergies Allergy Verified 02/06/24 17:35 Home Medications Medication Instructions Recorded Confirmed Type docosahexaenoic acid 200 mg 200 mg PO DAILY 11/14/23 02/12/24 History capsule ( DHA) Patient hx anesthesia problems: none Family hx anesthesia problems: none Results Review: All pre-operative results and documents have been reviewed as part of the pre-operative evaluation. [facility] Past Medical History Medical History Amenorrhea delivery delivered Surgical History Surgical History History of section complicating Family History Family History Other Breast cancer Lung cancer Skin cancer Social History Social History Smoking status: Never smoker Alcohol intake: former Substance use: never Substance use type: does not use Do You Feel Safe in your Home?: Yes Lack of Transportation: No Lack of Food: Never True Current Housing: I Have Housing Concerned About Future Housing: No Difficulty Paying Gas/Electric Bills: No Difficulty Paying for Meds: No Currently Unemployed: No Education: Trade/Vocational Certificate Difficulty w/ Childcare or Family Care: No Living arrangements: with family Occupation/Education: occupation 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[employer] Gender identity (if verbalized by the patient): Female Sexual Orientation (if Verbalized by the Patient): Straight or Heterosexual Spiritual care concerns: No Anes - Eval Final PreProcedure Day of Procedure 02/12/24 11:55 Patient weight: overweight Heart: regular rate and rhythm Lungs: clear to auscultation Airway: Mallampati scale class II Neurological: alert and oriented Last oral intake: >/= 8 hours ASA classification: II Emergent: no Anesthetic plan: proceed Anesthesia type and monitoring: regional spinal and standard monitoring Results Review: All pre-operative results and documents have been reviewed as part of the pre-operative evaluation. Informed Consent: The patient's anesthetic plan and its attendant risks and benefits were discussed with the patient/family/POA. Questions were solicited and answers provided to the satisfaction of the patient/family/POA.
[2024-02-12] MEDS: FAMOTIDINE 20 MG/2 ML VIAL IV PUSH (11:56)
[2024-02-12] MEDS: ONDANSETRON INJ 4 MG/2 ML VIAL IV PUSH (11:56)
[2024-02-12] MEDS: ceFAZolin 2 GM/D5W 50 ML 2 GM/50 ML BAG IVPB (12:02)
[2024-02-12] MEDS: SIMETHICONE 80 MG TAB.CHEW PO ×2 (13:10→18:57)
[2024-02-12] MEDS: OXYTOCIN 30 UNITS/NS 500 ML 30 UNITS/500 ML BAG 125 UNITS IV CONT (14:01)
--- NOTE | 2024-02-12 15:23 | PC.NURSE ---
This patient, Eri Jolley, was received from labor and delivery per stretcher to room 290. Patient/family oriented to unit policies and routines
--- NOTE | 2024-02-12 15:47 | P.PCNOB_ITS ---
OB - Delivery Note Procedure Delivery date: 02/12/24 Pre-op diagnosis: Oligohydramnios and Previous Delivery Post-op Diagnosis: Same Procedure Performed: Repeat Secondary branch: low cervical, transverse Surgeon: James Bolanos MD Anesthesia type: Spinal Description of Procedure/Findings: Patient prepped and draped usual manner for this procedure. Pfannenstiel incision was made through prior Pfannenstiel incision. This was carried down to the fascia which was extended bilaterally the length of the skin incision. Superiorly and inferiorly dissected away from the rectus muscles. Rectus muscles were readily and peritoneum was entered. Bladder flap was developed without difficulty. Uterus scored in lower segment and extended bilaterally length of the lower segment with clear fluid noted. Vertex was delivered without difficulty, suctioned nasopharynx, the rest baby was delive red. Cord clamped cut passed off the operative field. Placenta was then removed manually and uterus was exteriorized. Membranes and clots removed from the uterus which was then closed using 0 Monocryl in a running interlocking manner with good approximation hemostasis noted. Uterus was turned the abdomen again inspected with hemostasis noted. All subfascial tissue was noted hemostatic and the fascia was approximated using 0 Vicryl from the left angle to midline in a running manner and then from the right angle to the midline in the same manner. Subcutaneous tissue was approximated using 0 plain suture and brittany were used to approximate the skin edges. Patient was sent to recovery room in stable condition. Specimen: Yes Estimated Blood Loss: 205 Drains: Yes Packing: No Pathology: Yes Complications: No immediate complications Condition: Stable Disposition: PACU [place] Baby Weeks of gestation at delivery: 37 gender: Male Weight (pounds): 6 Weight (ounces): 11 presentation: vertex Placenta delivery description: Manual Removal Cord Vessel Description: 3 Vessels score one minute: 8 score five minutes: 9
[2024-02-12] MEDS: HYDROcodone/acetaminophen (*CRX) 5-325 MG TABLET 1 TAB PO ×2 (16:06→22:33)
[2024-02-12] MEDS: ACETAMINOPHEN 325 MG TABLET 650 MG PO (18:56)
[2024-02-12] MEDS: KETOROLAC 15 MG/ML VIAL (*BKC) IV PUSH (18:56)
[2024-02-12] MEDS: DOCUSATE SODIUM 100 MG CAPSULE PO (18:57)
[2024-02-12] MEDS: DEXTROSE 5%/0.45% SOD CHL 1,000 ML 125 ML IV CONT (18:57)
[2024-02-12] MEDS: LIDOCAINE 5% PATCH 1 PATCH TRANSDERM (22:36)
[2024-02-13 00:06] VITALS: BP 95/50; PULSE 61; RESP 18; TEMP 37.5; O2SAT 98
[2024-02-13] MEDS: ACETAMINOPHEN 325 MG TABLET 650 MG PO ×4 (02:34→23:27)
[2024-02-13] MEDS: KETOROLAC 15 MG/ML VIAL (*BKC) IV PUSH ×3 (02:35→14:14)
[2024-02-13 03:30] VITALS: BP 90/47; PULSE 67; RESP 16; TEMP 36.9; O2SAT 97
[2024-02-13 05:53] LABS: Basophils Percent Auto 0.3 % (0.2-1.2); Eosinophils Absolute Auto 0.1 K/mm3 (0-0.3); Hematocrit 32.5 % (37.0-47.0); Hemoglobin 10.5 g/dL (12.0-15.0); Immature Granulocyte Percent A 0.8 % (0-0.5); Lymphocytes Absolute Auto 1.85 K/mm3 (0.9-3.2); Lymphocytes Percent Auto 14.9 % (18.3-44.2); Mean Corpuscular HGB Conc 32.3 g/dl (32-36); Mean Corpuscular Hemoglobin 31.5 pg (26-34); Mean Corpuscular Volume 97.6 fl (80-100); Mean Platelet Volume 11.1 fl (7.4-10.4); Monocytes Absolute Auto 0.8 K/mm3 (0.1-0.6); Monocytes Percent Auto 6.4 % (2.6-8.5); Neutrophils Absolute Auto 9.5 K/mm3 (1.3-6.7); Neutrophils Percent Auto 76.6 % (45.5-73.1); Platelet Count Result 184 k/mm3 (150-375); Red Blood Count 3.33 M/mm3 (4.2-5.4); Red Cell Distribution Width 12.5 % (11.5-14.5); White Blood Count 12.4 K/mm3 (4.5-10.0)
[2024-02-13] MEDS: DOCUSATE SODIUM 100 MG CAPSULE PO ×2 (08:01→14:15)
[2024-02-13] MEDS: MULTIVIT/MIN/PREN/FOL AC/IRON TABLET 1 TAB PO (08:01)
[2024-02-13] MEDS: SIMETHICONE 80 MG TAB.CHEW PO ×3 (08:01→19:01)
[2024-02-13 08:15] VITALS: BP 98/65; PULSE 73; RESP 18; TEMP 36.8; O2SAT 100
--- NOTE | 2024-02-13 08:34 | WPDANLDNPN2 ---
Anes-Prog Note L&D-Neuraxial Date/Time: 02/13/24 08:34 Patient feedback: Patient satisfied with post-operative pain management.
--- NOTE | 2024-02-13 08:35 | WPDANLDPN2 ---
Anes-Prog Note L&D Date/Time: 02/13/24 08:35 Neuro status: Neuro function grossly intact. Cardiovascular status: normal Respiratory status: normal Airway patency: baseline Mental status: baseline Post-Op hydration status: normal Vital Signs: Last Vital Signs Temp 36.9 C 02/13/24 03:30 Pulse 67 02/13/24 03:30 Resp 16 02/13/24 03:30 BP 90/47 L 02/13/24 03:30 Pulse Ox 97 02/13/24 03:30 O2 Del Method Room Air 02/12/24 13:00 Pain score (VAS): 0 I/O: Intake & Output 02/12/24 02/13/24 02/13/24 23:59 07:59 15:59 Intake Total 500 0 Output Total 1800 1000 Balance -1300 -1000 Post-procedural complaints: none Patient feedback: Patient satisfied with anesthetic care.
--- NOTE | 2024-02-13 10:10 | P.PNOB_ITS ---
OB - PN: Subj Subjective Date/time seen: 02/13/24 10:10 Diet/ambulation tolerated. Pain well controlled. VSS afebrile abd soft fundus taty tender inc covered labs noted routine /postop care OB - PN: Obj Data Labs 02/13/24 03:47 Labs: Laboratory Results - last 24 hr 02/13/24 03:47 WBC 12.4 H RBC 3.33 L Hgb 10.5 L Hct 32.5 L MCV 97.6 MCH 31.5 MCHC 32.3 RDW 12.5 Plt Count 184 MPV 11.1 H Immature Gran % (Auto) 0.8 H Neut % (Auto) 76.6 H Lymph % (Auto) 14.9 L Henderson % (Auto) 6.4 Eos % (Auto) 1.0 Baso % (Auto) 0.3 Lymph # (Auto) 1.85 Henderson # (Auto) 0.8 H Eos # (Auto) 0.1 Baso # (Auto) 0.0 Abs Immat Gran (auto) 0.10 H Absolute Neuts (auto) 9.5 H Absolute Nucleated RBC 0.000 Nucleated RBC % 0.0 OB - PN A/P Time Spent With Patient Time: Total time spent is greater than 50% in coordination of care (as documented) at patient's floor/unit and/or counseling patient:
--- NOTE | 2024-02-13 11:16 | PC.NURSE ---
[id number] Introductions were made, then consulted with patient to assess needs related to . Discussed with mother her?plans to feed?her infant, the?experience so far latching independently with no pain with exception to some tenderness after feeding. has an extraordinary output. Educated mother on visualizing her nipples after a breastfeed with signs of a good latch vs a poor latch along with how to watch for swallowing looking for a deeper longer suck demonstrated by the lower jaw dropping. Encouraged [id number], responding to early feeding cues, demonstrated stimulating for wakefulness and placed upright cnhb-rm-hqim on parents chest/breast with a blanket covering using the visual Hunger cues for feeding handout. Resources provided for inpatient services with name written on the communication board along with instructions to use the call light. Mother voiced understanding of information and will call if there is a request for assistance.
[2024-02-13 12:05] VITALS: BP 104/66; PULSE 57; RESP 16; TEMP 36.6; O2SAT 100
[2024-02-13] MEDS: HYDROcodone/acetaminophen (*CRX) 5-325 MG TABLET 1 TAB PO (19:01)
[2024-02-13 20:20] VITALS: BP 106/67; PULSE 62; RESP 18; TEMP 36.9; O2SAT 100
[2024-02-13] MEDS: IBUPROFEN 600 MG TABLET PO (20:30)
[2024-02-14] MEDS: IBUPROFEN 600 MG TABLET PO ×4 (02:42→23:47)
[2024-02-14] MEDS: ACETAMINOPHEN 325 MG TABLET 650 MG PO ×3 (05:33→19:40)
--- NOTE | 2024-02-14 07:42 | PC.NURSE ---
Mother requests to take Motrin and Tylenol separate as she wishes to have pain coverage Q3H. RN educated mother on the benefits of taking the two meds together but patient stated she still wishes to take alone; RN spoke to mother about the benefit of the Lidocaine patch and mother is aggreeable to this; pt verbalized understanding.
[2024-02-14] MEDS: DOCUSATE SODIUM 100 MG CAPSULE PO ×2 (07:49→17:18)
[2024-02-14] MEDS: SIMETHICONE 80 MG TAB.CHEW PO ×3 (07:49→17:18)
[2024-02-14] MEDS: MULTIVIT/MIN/PREN/FOL AC/IRON TABLET 1 TAB PO (07:49)
[2024-02-14] MEDS: LIDOCAINE 5% PATCH 1 PATCH TRANSDERM (07:49)
[2024-02-14 08:25] VITALS: BP 96/65; PULSE 68; RESP 16; TEMP 36.7; O2SAT 100
--- NOTE | 2024-02-14 12:58 | PC.NURSE ---
0905- Primary RN is present. Father of baby shared that infant recently received a bottle. Instructed parents to call with the next feeding and they voiced understanding. [id number] RN DANIELLA was requested to the room. Upon entering the room, infant is jgba-io-[id number] demonstrating feeding cues. Mother works well with her with encouragement and education. Reviewed positioning and ear, shoulder, hip alignment, supporting the breast to facilitate a deep latch, asymmetrical latch (off-center), leading with the chin with a big, open, wide gape and body close to mother. latched optimally to the left breast in cross cradle position. Education given to the mother of how to visualize the suckling (with good rocking jaw motion), swallows (dropping of the lower jaw) and how to listen for drinking at the breast (the ka sound) which infant demonstrates. was able to maintain latch without pain to mother protecting the nipple with optimal positioning and latching. Reviewed comfort measures of healing with a warm, wet washcloth to rinse breast, then leave open to air-dry, good handwashing when or touching the breast/nipples to prevent infection. Mother voiced understanding of skin to skin, stimulating with massage touch, responsive feedings, hand expressed colostrum, talking to to encourage if it has been 2 -2.5 hours since the start of the last , to call if does not latch, or if there is discomfort with . Resources used for education were facilitated with the visual educational handouts/ tool/mom and baby guide. Inpatient/outpatient resources provided with feeding sheet, name written on the communication board, and the mom/baby guide. Mother voiced understanding of information, demonstrated learning and will call if there is a request for assistance. Reported to the Primary RN. [id number] RN DANIELLA was called to the room for a consult. Reviewed the above information after snsi-ya-yret and massage touch, talking to stimulate for wakefulness, burps to offer the other breast. Infant optimally latched to the right breast using the football positioning. demonstrated 1:1 suck:swallow many times. Encouraged mother to feeding about every 2-2.5 hours during the day while practicing uzix-nt-byqw as well with light and gentle touch with compressions when is to increase swallowing. Mother voiced understanding of the information. Reported to the Primary RN.
--- NOTE | 2024-02-14 13:46 | PC.NURSE ---
1240 - Mother verbalizes she is able to independently latch with appropriate positioning and alignment. She denies any nipple discomfort and is responsively . is currently meeting outcomes for weight, output, jaundice, blood sugar and feeding frequencies of 8-12 times in 24 hours. Mother declines any additional assistance or education at this time. Mother is encouraged to call for assistance if her infant doesn?t latch, pain with latching, questions or concerns. Mother voiced understanding of information shared along with the mom/baby guide for an additional resource. Reported to the Primary RN.
--- NOTE | 2024-02-14 15:52 | PM.OBPNVD ---
OB - PN: Subj Subjective Date/time seen: 02/14/24 15:52 no significant change since yesterday though she is feeling better and has ambulated more. Incision is less uncomfortable than yesterday. Incision clean dry and intact with brittany in place Assessment doing well Plan discharge home tomorrow to follow up early next week for staple removal OB - PN: Obj Data Labs 02/13/24 03:47 OB - PN A/P Time Spent With Patient Time: Total time spent is greater than 50% in coordination of care (as documented) at patient's floor/unit and/or counseling patient:
--- NOTE | 2024-02-14 15:53 | PM.OBDSVD ---
DS: Admitting Diagnosis Discharge Date 02/15/2024 Admitting Diagnosis DS: Discharge Diagnosis Discharge Diagnosis (1) , delivered: Code(s): O80 - Encounter for full-term uncomplicated delivery Status: Acute OB - DS: Summary OB Procedures : None OB Procedures Intrapartum: OB Procedures: : None Peripartum Data Procedures: Procedures Operation Date: 02/12/24 12:00 Actual Procedure Side Surgeon p Repeat Section Not Applicable James Bolanos MD Time Spent with Patient Time attestation: Total time spent providing and/or coordinating discharge services: DS: Data Data Completed and Pending Pending studies at discharge: Pending at discharge 02/12/24 12:31 Surgical [PTH] Routine Discharge Plan Discharge Discharging Clinician: James Bolanos Patient Disposition: Home, Self-Care Activity: may shower, no straining, no driving, follow weight bearing status and pelvic rest Diet: as tolerated Wound Care Instructions: incision open to air Discharge Instructions: return to office early next week for staple removal Patient Instructions: Antibiotic Form Stand Alone Forms: General Discharge Information Follow-up/Referrals: James Bolanos MD [Physician] - 3 Weeks Discharge Medications: New hydrocodone-acetaminophen 5-325 mg Tablet 1 tablet PO Q3H PRN (Reason: Breakthrough Pain Rated 4-6) Qty: 20 0RF ibuprofen 600 mg Tablet 600 mg PO Q6H Qty: 30 1RF Continued DHA 200 mg capsule 200 mg PO DAILY Date of admission: 02/12/24 09:39 Primary Care Provider: RosalineDamaris Admitting Provider: James Bolanos Attending physician on admission: James Bolanos Condition: Stable
[2024-02-14 20:35] VITALS: BP 104/60; PULSE 58; RESP 16; TEMP 37.2; O2SAT 99
[2024-02-15] MEDS: ACETAMINOPHEN 325 MG TABLET 650 MG PO ×2 (03:03→12:05)
[2024-02-15 08:00] VITALS: PULSE 64; RESP 18; O2SAT 98
[2024-02-15 08:55] VITALS: BP 105/69; PULSE 64; RESP 18; TEMP 36.3; O2SAT 98
[2024-02-15] MEDS: DOCUSATE SODIUM 100 MG CAPSULE PO (12:05)
[2024-02-15] MEDS: SIMETHICONE 80 MG TAB.CHEW PO (12:05)
[2024-02-15] MEDS: IBUPROFEN 600 MG TABLET PO (12:05)
[2024-02-15] MEDS: MULTIVIT/MIN/PREN/FOL AC/IRON TABLET 1 TAB PO (12:05)
--- NOTE | 2024-02-15 13:16 | PC.NURSE ---
Patient viewed the discharge video Mother & Baby Care, The First Two Weeks . Patient was given the opportunity and encouraged to ask questions. Patient verbalized understanding of information shared and has been given the mother/baby guide for home reference.
--- NOTE | 2024-02-15 14:47 | PC.NURSE ---
[id number] Purposefully rounded to assess for needs. Mother shared she and the night nurse struggled last night to latch related to her breast being so full and hard. They opted to pump and feed the with a bottle. Reviewed prevention, treatment and care of engorgement and to call with the next session to practice since is in the nursery. [id number] Patient called for a consult. Upon entering the room mother has bibf-ss-[id number] with active rooting. Mother is encouraged to sandwich hold her breast as infant latches deeply to the right breast using cross cradle positioning. latches and drinks frequently at the breast with no pain to mother. Encouraged frequent feedings as has lost over 8% in weight. Mother instructed to call for assistance latching infant to the other breast or for any questions or concerns.
== END 2024-02-15 14:29 | disposition home or self-care (01) | DRG 787 ==
LOC: ANHLDR 09:42 → ANHOB2 15:51
PROVIDERS: Admitting Provider Obstetrics & Gynecology; PCP Nurse Practitioner; Visit Provider Obstetrics & Gynecology
PROC: 10D00Z1 Extraction of Products of Conception, Low, Open Approach (ICD-10-PCS; CPT 59514; principal; 2024-02-12 12:00)
DX: O34.219 Maternal care for unspecified type scar from previous cesarean delivery (principal); O41.03X0 Oligohydramnios, third trimester, not applicable or unspecified; Z3A.37 37 weeks gestation of pregnancy; Z37.0 Single live birth
CPT/HCPCS: 36415; 85025; 88307; A9270; J0690; J1885; J2274; J2371; J2405; J2590; J7120

== ENCOUNTER 2025-02-24 17:09 | Outpatient (CLI) | payer OTHER, SELFPAY ==
--- OUTSIDE RECORDS SUMMARY | 2025-02-24 17:21 | XMS_ITS | Encounter Summary ---
Author Organization [facility] Health Address [address] [place] [address] Care Team Providers Care Productivity Engineer Name Role Phone Ja Kohler MD Primary Care Provider [phone] [place] Urena MD Unavailable [phone] Encounter Details Date Type Department Care Team (Late st Contact Info) Description 01/24/2020 [facility] Outpatient Visit [facility] [address] [place] [address] Payal Castle MD [address] [id number] Social History Tobacco Use Types Packs/Day Years Used Date Smoking Tobacco: Never Smokeless Tobacco: Never Alcohol Use Standard Drinks/Week Comments No 0 (1 standard drink = 0.6 oz pur e alcohol) Comments No Sex and Gender Information Value Date Recorded Sex Assigned at Female 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 [address] [place], [place] [id number] PCP - General Pediatrics 03/28/16 12/24/24 [place] Urena MD [address] [address] Obstetrics and Gynecology 02/01/21 documented as of this encounter
--- OUTSIDE RECORDS SUMMARY | 2025-02-24 17:21 | XMS_ITS | Clinical Summary ---
Author Organization [facility] Address [address] 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,non-owned Affiliates and Associated Physician Practices is amultiple site organization consisting of ambulatory clinics and hospital sitesin [place], [place], [place] and [place]. This disclosure is being madepursuant to the Care Everywhere program and may not contain all information available regarding this patient. Last updated 18.[facility] Allergies No known active allergies Medications * Be aware that medications may not be up to date on this document. Alwaysverify current medications with the patient. Vit-Fe Fumarate-FA ( plus) 27-1 MG tabletIndication s:Visit for confirmation of test result with physical exam Take 1 (one) tablet by mouth once daily 30 tablet 3 Active ferrous sulfate 325 (65 FE) MG tabletIndication s:Visit for confirmation of test result with physical exam Take 1 (one) tablet by mouth daily with breakfast 30 tablet 11 3 Active metoclopramide (Reglan) 10 MG tabletIndication s:Nausea/vomitin g in (HCC) Take 1 (one) tablet by mouth every 6 hours as needed for Nausea/Vomiting 30 tablet 1 3 Active Additional Information Patient not taking.Reported on 09/14/2023 Active Problems Problem Noted Date Diagnosed Date Oligohydramnios, antepartum 04/07/2021 COVID-19 virus detected 2021 Overview (01/20/2021): also had it Rubella non-immune status, antepartum 09/28/2020 Type O blood, Rh positive 09/28/2020 Low TSH level 09/28/[address] 06/12/2017 Overview (06/12/2017): Inserted 11/21/2016 Resolved Problems Problem Noted Date Diagnosed Date Resolved Date Hyperemesis gravidarum 09/28/202004/13 Immunizations Immunization Administration Dates Next Due TDAP (7yrs+) 02/18/2021 Family History Medical History Relation Name Comments Breast Cancer at or under age 50 Other aunt Cancer - Colon Neg Hx Cancer - Ovarian Neg Hx Cancer - Uterine Neg Hx Relation Name Status Comments Other aunt Alive Social History Tobacco Use Types Packs/Day Years Used Date Smoking Tobacco: Never Smokeless Tobacco: Never Tobacco Cessation:Counseling Given: Not Answered Alcohol Use Standard Drinks/Week Comments No 0 (1 standard drink = 0.6 oz pur e alcohol) PHQ-2 Answer Date Recorded PHQ2 TOTAL SCORE 3 04/12/2023 [place] Depression Scale Answer Date Recorded Last EPDS Total Score Not on file 05/19/2021 The thought of harming myself has occurred to me . Never 05/19/2021 Comments No Sex and Gender Information Value Date Recorded Sex Assigned at Female 07/20/2023 7:54 AM MEDICAL TECH Legal Sex Female 5:42 AM MEDICAL TECH Gender Identity Female 07/20/2023 7:54 AM MEDICAL TECH Sexual Orientation Not on file Occupation Industry Job Start Date Job End Date student Not on file Not on file Not on file Last Filed Vital Signs Vital Sign Reading Time Taken Comments Blood Pressure 102/68 10/17/2023 2:09 PM MEDICAL TECH Pulse 67 04/29/2018 3:58 PM CDT Temperature 36.9 C (98.5 F) 01/24/2020 10:13 AM CDT Respiratory Rate 16 04/29/2018 3:58 PM CDT Oxygen Saturation 100% 04/29/2018 3:58 PM CDT Inhaled Oxygen Concentration - - Weight 53.9 kg (118 lb 12.8 oz) 10/17/2023 2:09 PM MEDICAL TECH Height 157.5 cm (5' 2) 09/14/2023 3:33 PM MEDICAL TECH Body Mass Index 21.73 09/14/2023 3:33 PM MEDICAL TECH Plan of Treatment Health Maintenance Due Date Last Done Comments HPV VACCINE (1 - 3-dose series) 2017 MENINGOCOCCAL (Group B) VACCINE SHARED DECISION-MAKING (1 of 2 - Standard) 2018 HEPATITIS B VACCINE (1 of 3 - 19+ 3-dose series) 2021 CHLAMYDIA/GONORRHEA SCREENING 04/12/2024 04/12/2023, 09/21/2020, 06/11/2019, Additional history exists COVID-19 VACCINE ( season) 2024 DEPRESSION SCREENING 09/11/2024 06/10/2022, 02/10/20 22 INFLUENZA VACCINE (Season Ended) 2025 07/25/2020, 07/09/2013 PAP SMEAR 04/12/2026 04/12/2023, 09/21/2020 DTAP/TDAP/TD VACCINES (2 - Td or Tdap) 02/18/2031 02/18/2021 ZOSTER VACCINE (1 of 2) 01/09/2052 HEPATITIS C SCREENING Completed 07/24/2023 HIV SCREENING Completed 07/24/2023, 09/21/2020 HIB VACCINE Aged Out No longer eligi ble based on patient's age to complete this topic MENINGOCOCCAL GROUPS A/C/Y/W VACCINE Aged Out No longer eligible based on patient's age to complete this topic PNEUMOCOCCAL VACCINE Aged Out No long er eligible based on patient's age to complete this topic Procedures Procedure Name Priority Date/Time Associated Diagnosis Comments OBSTETRIC PANEL RFLX CONFIRM (WO CT/GC/UA) Routine 07/24/2023 4:23 PM MEDICAL TECH Visit for confirmation of test result with physical exam PAP IG LB RFLX HPV APTIMA ASCU Routine 04/12/2023 9:47 AM CDT Well woman exam CHLAMYDIA + GC AMPLIFIED PROBE Routine 04/12/2023 9:47 AM CDT Well woman exam CULTURE STREP B Routine 03/31/2021 2:54 PM CDT 35 weeks gestation of GLUCOSE CHALLENGE Routine 02/03/2021 2:3 2 PM CDT 25 weeks gestation of from Last 3 Months or Most Recently Relevant to Health Maintenance Results * OBSTETRIC PANEL RFLX CONFIRM (WO CT/GC/UA) (07/24/2023 4:23 PM MEDICAL TECH) Hepatitis B Virus Surface Antigen Negative Negative [facility] ACCOUNT BILL Hepatitis C Antibody Non Reactive Non Reactive [facility] ACCOUNT BILL RPR Non Reactive Non Reactive [facility] ACCOUNT BILL Rubella Antibody 3.55 Immune >0.99 index [facility] ACCOUNT BILL Comment: Non-immune <0.90 Equivocal 0.90 - 0.99 Immune >0.99 ABO O [facility] ACCOUNT BILL Rh Type Positive [facility] ACCOUNT BILL Comment: Please note: Prior records for this patient's ABO / Rh type are not available for additional verification. Antibody Screen Negative Negative [facility] ACCOUNT B[facility] HIV Screen 4th Generation w Reflex Non Reactive Non Reactive [facility] ACCOUNT BILL Comment: HIV Negative HIV-1/HIV-2 antibodies and HIV-1 p24 antigen were NOT detected. There is no laboratory evidence of HIV infection. WBC 9.8 3.4 - 10.8 x10E3/uL [facility] ACCOUNT BILL RBC 4.53 3.77 - 5.28 x10E6/uL [facility] ACCOUNT BILL Hemoglobin 14.6 11.1 - 15.9 g/dL [facility] ACCOUNT BILL Hematocrit 42.6 34.0 - 46.6 % [facility] ACCOUNT BILL MCV 94 79 - 97 fL [facility] ACCOUNT BILL MCH 32.2 26.6 - 33.0 pg [facility] ACCOUNT BILL MCHC 34.3 31.5 - 35.7 g/dL [facility] ACCOUNT BILL RDW 11.7 11.7 - 15.4 % [facility] ACCOUNT BILL Platelet Count 210 150 - 450 x10E3/uL [facility] ACCOUNT BILL Granulocytes % 68 Not Estab. % [facility] ACCOUNT BILL Lymphocytes % 24 Not Estab. % [facility] Monocytes % 7 Not Estab. % [facility]OUNT BILL Eosinophils % 1 Not Estab. % [facility] ACCOUNT BILL Basophils % 0 Not Estab. % [facility] ACCOUNT BILL Immature Cells NOT AVAILABLE [facility] ACCOUNT BILL Comment:Result cannot be obt ained for this observation. Granulocytes Absolute 6.6 1.4 - 7.0 x10E3/uL [facility] ACCOUNT BILL Lymphocytes Absolute 2.3 0.7 - 3.1 x10E3/uL [facility] ACCOUNT BILL Monocytes Absolute 0.7 0.1 - 0.9 x10E3/uL [facility] ACCOUNT BILL Eosinophils Absolute 0.1 0.0 - 0.4 x10E3/uL [facility] ACCOUNT BILL Basophils Absolute 0.0 0.0 - 0.2 x10E3/uL [facility] ACCOUNT BILL Immature Granulocytes 0 Not Estab. % [facility] ACCOUNT BILL Immature Granulocytes Absolute 0.0 0.0 - 0.1 x10E3/uL [facility] ACCOUNT BILL nRBC NOT AVAILABLE [facility] ACCOUNT BILL Comment:Result cannot be obt ained for this observation. Comment Hematology NOT AVAILABLE [facility] ACCOUNT BILL Comment:Result cannot be obt ained for this observation. Urine Culture with GBS Final report [facility] ACCOUNT BILL Other MISCELLANEOUS SAMPLE S / Unknown 07/24/2023 4:23 PM MEDICAL TECH 07/24/2023 Narrative Resulting Agency Comment [facility]: [facility] [address] [facility] [address] [facility] [id number] Bee Munoz MD LAB - CHEMISTRY ORDERABLE S Final Result [facility] ACCOUNT BILL [address] [place] [address] * PAP IG LB RFLX HPV APTIMA ASCU (04/12/2023 9:47 AM CDT) Diagnosis [facility] ACCOUNT BILL Comment:NEGATIVE FOR INTRAEP ITHELIAL LESION OR MALIGNANCY. Specimen Adequacy [facility] B[facility] Comment: Satisfactory for evaluation. Endocervical and/or squamous metaplastic cells (endocervical component) are present. Clinician Provided ICD10 [facility] ACCOUNT BILL Comment: Z01.419 Z30.011 F53.0 Performed by [facility] ACCOUNT BILL Comment:Lianna Okeefe Cytotec hnologist (ASCP) Comment . [facility] ACCOUNT BILL Note [facility] ACCOUNT BILL Comment: The Pap smear is a screening test designed to aid in the detection of premalignant and malignant conditions of the uterine cervix. It is not a diagnostic procedure and should not be used as the sole means of detecting cervical cancer. Both false-positive and false-negative reports do occur. . IGLBP CPT Code Automation NOT AVAILABLE [facility] ACCOUNT BILL Comment: The Thin Prep(R) Maintenance Associate was unable to read this specimen. Therefore a manual review was performed. Result cannot be obtained for this observation. Note [facility] ACCOUNT BILL Comment: The HPV DNA reflex criteria were not met with this specimen result therefore, no HPV testing was performed. . Pathology/Cytolog y PART OF UTERINE CERVIX / Unknown 04/12/2023 9:47 AM CDT 04/12/2023 Narrative [facility] ACCOUNT BILL - 04/17/2023 11:09 AM CDT No. of containers..01 ThinPrep Vial Resulting Agency Comment Lab Testing performed at: [facility] [place] [id number] [place] Dallas Urena MD LAB - PATHOLOGY/CYTOLOGY OR DERABLES Final Result Performing Organization Address City/[facility]/ZIP Co de Phone Number [facility] ACCOUNT BILL [address] [place] [address] * CHLAMYDIA + GC AMPLIFIED PROBE (04/12/2023 9:47 AM CDT) Chlamydia TERRY Urine Negative Negative [facility] ACCOUNT BILL GC TERRY Urine Negative Negative [facility] ACCOUNT BILL Microbiology PART OF UTERINE CERVIX / Unknown 04/12/2023 9:47 AM CDT 04/12/2023 Narrative Resulting Agency Comment Lab Testing performed at: [facility] [place] [id number] us Dallas Urena MD LAB - MICROBIOLOGY ORDERABL ES Final Result Performing Organization Address City/[facility]/ZIP Co de Phone Number [facility] ACCOUNT BILL [address] [place] [address] * CULTURE STREP B (03/31/2021 2:54 PM CDT) Strep Group B Culture Negative Negative [facility] ACCOUNT BILL Comment: Centers for Disease Control and Prevention (CDC) and [place] [employer] of Obstetricians and Gynecologists (ACOG) guidelines for prevention of group B streptococcal (GBS) disease specify co-collection of a vaginal and rectal swab specimen to maximize sensitivity of GBS detection. Per the CDC and ACOG, swabbing both the lower vagina and rectum substantially increases the yield of detection compared with sampling the vagina alone. . Penicillin G, ampicillin, or cefazolin are indicated for intrapartum prophylaxis of GBS colonization. Reflex susceptibility testing should be performed prior to use of clindamycin only on GBS isolates from penicillin-allergic women who are considered a high risk for anaphylaxis. Treatment with vancomycin without additional testing is warranted if resistance to clindamycin is noted. Microbiology MISCELLANEOUS SAMPLES / Unknown 03/31/2021 2:54 PM CDT 03/31/2021 Narrative Resulting Agency Comment Lab Testing performed at: [employer] [facility] [id number] us Dallas Urena MD LAB - MICROBIOLOGY ORDERABL ES Final Result Performing Organization Address [facility] Co de Phone Number [facility] ACCOUNT BILL [address] [place] [address] * GLUCOSE CHALLENGE (02/03/2021 2:32 PM CDT) [facility] GTT 1Hr 83 65 - 139 mg/dL [facility] ACCOUNT BILL Comment: According to ADA, a glucose threshold of >139 mg/dL after 50-gram load identifies approximately 80% of women with gestational diabetes mellitus, while the sensitivity is further increased to approximately 90% by a threshold of >129 mg/dL. Blood BLOOD SPECIMEN / Unknown 02/03/2021 2:32 PM CDT 02/03/2021 Narrative Resulting Agency Comment Lab Testing performed at: [employer] [facility] [id number] us Dallas Urena MD LAB - CHEMISTRY ORDERABLES Final Result Performing Organization Address [facility] Co de Phone Number [facility] ACCOUNT BILL [address] [place] [address] from Last 3 Months or Most Recently Relevant to Health Maintenance Insurance [employer] * Guarantor: GAY HESTERLA Account Type Relation to Patient Date of Phone Billing Address Personal/Family [address] [place] [address] [employer] SELF PAY NO INSURANCE Member Subscriber Plan / Payer (Ef fective for All Dates) Name:Kacie Morteza Member ID:Not on file Relation to Subscriber:Not on file Name:KACIE,MORTEZA Subscriber ID:Not on file Address: [address] [place] [address] Payer ID:Not on file Group ID:Not on file Type:Self Pay Address: [place], [place] * Guarantor: MORTEZA HESTER Account Type Relation to Patient Date of Phone Billing Address Personal/Family [address] [place] [address] [employer] SELF PAY NO INSURANCE Member Subscriber Plan / Payer (Ef fective for All Dates) Name:Morteza Hester Member ID:Not on file Relation to Subscriber:Not on file Name:MORTEZA HESTER Subscriber ID:Not on file Address: [address] [place] [address] Payer ID:Not on file Group ID:Not on file Type:Self Pay Address: [place], [place] * Guarantor: KACIEMORTEZA AWAN Account Type Relation to Patient Date of Phone Billing Address Personal/Family [address] [place] [address] SELF PAY NO INSURANCE Member Subscriber Plan / Payer (Ef fective for All Dates) Name:Morteza Hester Member ID:Not on file Relation to Subscriber:Not on file Name:MORTEZA HESTER Subscriber ID:Not on file Address: [address] [place] [address] Payer ID:Not on file Group ID:Not on file Type:Self Pay Address: [place], [place] Care Teams Horticultural Farmworker Relationship Specialty Start Date End Date Dallas Urena MD [address] [facility] [address] [place] [id number] Obstetrics and Gynecology 02/01/21
[2025-02-24 18:20] LABS: Beta HCG Quantitative < 2.39 mIU/ML
== END 2025-02-24 17:10 | disposition home or self-care (01) ==
LOC: ANHLAB 17:11
PROVIDERS: PCP Nurse Practitioner; Visit Provider Obstetrics & Gynecology
DX: N92.6 Irregular menstruation, unspecified (principal)
CPT/HCPCS: 36415; 84702